=== PATIENT | female | born 1970 | race Caucasian/White ===

== ENCOUNTER 2025-03-15 07:37 | Day surgery (SDC) | payer BC ==
[~2025-03-15] VITALS: Ht 160 cm; Wt 70.5 kg
--- NOTE | ~2025-03-15 | OR ---
[facility] [address] [place], [place] [address] Draft DATE OF OPERATION: 03/15/2025 SURGEON: Guerita Teran MD PREOPERATIVE DIAGNOSIS: Colon screening. POSTOPERATIVE DIAGNOSES: 1. Pandiverticulosis. 2. Small polyp of cecum (excised). PROCEDURE: Total colonoscopy to cecum with cold snare polypectomy x1. ANESTHESIA: Intravenous sedation, fentanyl 150 mcg, and Versed 6 mg. INDICATION: This 55-year-old woman is a patient HITESH Leslie. She last underwent colonoscopy [address] Vahe Shay, which was said to have an "extra long colon." She has no family history of colon cancer. No current symptoms of bleeding, diarrhea, or constipation. She is admitted at this time to undergo colonoscopy for screening. She does note a family history of diverticulosis and personal history of diverticulosis as well. FINDINGS: The prep was good. Complete colonoscopy was undertaken of the cecum with full intubation of the cecum. I do not think the colon was excessively long. There was a small polyp of the cecum, which was excised with cold snare technique. She did have pandiverticulosis. There was no evidence of stricture or other abnormality. DESCRIPTION OF PROCEDURE: The patient was brought to the endoscopy suite and placed in lateral decubitus position, given intravenous sedation to the point of slurred speech and nystagmus. Digital rectal examination was normal. An Olympus video colonoscope was passed in the rectum and manipulated throughout the colon to the area of the hepatic flexure. Abdominal wall stabilization allowed for additional passage ultimately to the cecum with full intubation of the cecum. The prep was adequate. Irrigation was undertaken. A small polyp was revealed on the cecum. PATIENT NAME: GABRIEL CURRAN OPERATIVE REPORT DATE OF : 74 REPORT #: [id number] PHYSICIAN: GUERITA TERAN MD PCP: [facility] PAC REPORT IS CONFIDENTIAL AND NOT TO BE RELEASED WITHOUT AUTHORIZATION [facility] [address] [place] [id number] Draft This was excised with cold snare technique. Specimen passed for pathology. The scope was then withdrawn. Examination throughout showed scattered diverticula throughout the colon including the right side and elsewhere. The scope was ultimately retroflexed in the rectum showing no other abnormality. The scope was removed. The patient was taken to the recovery room in good condition. CONCLUDING DIAGNOSES: 1. Pandiverticulosis. 2. Small polyp of cecum. PLAN: Recommend repeat colonoscopy in 10 years, sooner if symptoms should develop. Would recommend high-fiber diet on the basis of her diverticular disease. She will return to the ongoing care of HITESH Leslie. MD BRUNILDA Krishna/DAVE /[id number] cc: [employer] PA-C Copies: ~ PATIENT NAME: GABRIEL CURRAN OPERATIVE REPORT DATE OF : 74 REPORT #: [id number] PHYSICIAN: GUERITA TERAN MD PCP: [facility] PAC REPORT IS CONFIDENTIAL AND NOT TO BE RELEASED WITHOUT AUTHORIZATION
[~2025-03-15 07:37] MED LIST: ASPIR-LOW81 MG PO; HYDROCHLOROTHIA25 MG PO; IBLOOD GLUCOSE TEST STRIP 1 EA TEST VI PRN; LACTATED RINGER'S 1,000 ML IV SCH; LIDOCAINE HCL 1% 5 ML SDV INJ ONE; LISINOPRIL10 MG PO; MIDAZOLAM HCL 5 MG/5 ML VIAL IV PRN; MULTIVITAMINS1 EAC7 PO; fentaNYL citrate 100 MCG/2 ML VIAL IV PRN
[2025-03-15 07:53] VITALS: BP 123/85
[2025-03-15] MEDS ORDERED: fentaNYL citrate 100 MCG/2 ML VIAL ONE (08:47)
[2025-03-15] MEDS ORDERED: MIDAZOLAM HCL 5 MG/5 ML VIAL ONE (08:47)
--- NOTE | 2025-03-15 09:45 | NUR ---
03/15/25 0945 Pelon Dunn 0937: PT ARRIVED TO PACU VIA STRETCHER. PT ON 3L NC. PT HAS NO COMPLAINTS OF NAUSEA OR PAIN. PTS ABDOMEN IS SOFT NON DISTENDED. 0939: PT TITRATED TO RA AT THIS TIME. 0944: PT REMAINS ON RA WITH SATS IN THE MID 90'S.
[2025-03-15 09:55] VITALS: BP 116/78
[2025-03-15 10:01] VITALS: BP 111/81
--- NOTE | 2025-03-19 16:53 | PATH ---
[facility] [address] [place], [place] [address] Signed SPECIMEN(S): A CECUM COLON POLYP SPECIMEN SOURCE: A. CECUM COLON POLYP CLINICAL HISTORY: Colon cancer, screening/diverticulosis, colon polyp FINAL PATHOLOGIC DIAGNOSIS: Cecal polyp: - Tubular adenoma. - Negative for high-grade dysplasia or malignancy. [facility] MICROSCOPIC EXAMINATION: Histologic sections of all submitted blocks are examined by light microscopy. These findings, together with the gross examination, support the pathologic diagnosis. GROSS DESCRIPTION: The specimen, labeled and designated "Curran, cecum colon polyp," is received in formalin and consists of two leone soft tissue fragments, ranging from 0.2-0.9 cm. Entirely submitted in (A1). VB (under the direct supervision of a pathologist) The Gross Description was prepared using a voice recognition system. The report was reviewed for accuracy; however, sound-alike word errors, addition and/or deletions may occur. If there is any question about this report, please contact Client Services. ADDITIONAL NOTES: Immunohistochemical and/or in situ hybridization studies if performed in this case included appropriate positive controls that reacted as expected. This test was developed and its performance characteristics determined by [facility]. It has not been cleared or approved by the U.S. Food and Drug Administration. The FDA has determined that such clearance or approval is not necessary. This test is used for clinical purposes. It should not be regarded as investigational or for research. [facility] is certified under the Clinical Laboratory Improvement Amendments of 1988 (CLIA) as qualified to perform high complexity clinical laboratory testing. PATIENT NAME: GABRIEL CURRAN PATHOLOGY DATE OF : 74 REPORT #: [id number] PHYSICIAN: ELVA AARON PCP: [facility] PAC REPORT IS CONFIDENTIAL AND NOT TO BE RELEASED WITHOUT AUTHORIZATION [address] [address] Signed PERFORMING LABORATORY: Technical component was performed by [facility], [address] [place] [id number] (CLIA# [id number]). [facility], [address] [place] [id number] (CLIA#: [id number]). Diagnostician: Ashok Moore MD Pathologist Electronically Signed 03/19/2025 Copies: ~ PATIENT NAME: GABRIEL CURRAN PATHOLOGY DATE OF : 74 REPORT #: [id number] PHYSICIAN: ELVA AARON PCP: [facility] [facility] PAC REPORT IS CONFIDENTIAL AND NOT TO BE RELEASED WITHOUT AUTHORIZATION
== END 2025-03-15 10:15 | disposition home or self-care (01) ==
LOC: DS 07:37
PROVIDERS: ATTEND Surgery
PROC: 0DBH8ZX Excision of Cecum, Via Natural or Artificial Opening Endoscopic, Diagnostic (ICD-10-PCS; principal; 2025-03-15 08:45)
DX: Z12.11 Encounter for screening for malignant neoplasm of colon (principal); D12.0 Benign neoplasm of cecum; K57.30 Diverticulosis of large intestine without perforation or abscess without bleeding; I10 Essential (primary) hypertension; Z79.899 Other long term (current) drug therapy
CPT/HCPCS: 99153; G0500; J2250; J3010; J7121